=== PATIENT | female | born 1950 | race Caucasian/White ===

== ENCOUNTER 2017-07-18 08:26 | Day surgery (SDC) | payer MEDICARE, BC ==
[~2017-07-18 08:26] MED LIST: ASPIRIN EC81 M1 PO; FOLATE0.4 MG PO; HYDROCHLOROTHIA50 MG PO; LOVASTATIN20 MG PO; TENORMIN100 MG PO
[2017-07-18 09:29] LABS: HEMATOCRIT 43.1 % (36.0-48.0); HEMOGLOBIN 14.8 g/dL (12-16); MCH 31.4 pg (26.0-34.0); MCHC 34.3 g/dL (31.0-37.0); MCV 91.5 fL (80.0-100.0); MEAN PLATELET VOLUME 9.8 fL (7.4-10.4); RBC 4.71 10x6/uL (4.00-5.40); RDW 12.3 % (11.5-14.5); WBC 6.6 10x3/uL (4.8-10.8)
[2017-07-18 09:34] LABS: ANION GAP 10.8 mmol/L (8-16); CALCIUM 9.5 mg/dL (8.5-10.1); CARBON DIOXIDE 30.2 mmol/L (21.0-32.0); CREATININE - SERUM 1.1 mg/dL (0.6-1.3)
[2017-07-18 09:51] VITALS: BP 135/68; BMI 28.3
--- NOTE | 2017-07-18 15:09 | NUR ---
1430--IV DC'D, PT UP TO DRESS AT THIS TIME. JESSE LOZADA 1445--DISCHARGE INSTRUCTIONS GIVEN, PT VERBALIZES UNDERSTANDING. PT OFF UNIT VIA WC. JESSE LOZADA
--- NOTE | 2017-08-01 13:09 | OP ---
PATIENT NAME: DOUGLAS GONZALES MEDICAL RECORD: [id number] :50 LOCATION:[facility] ADMISSION DATE: SURGEON: ARNAV LUND DPM DATE OF OPERATION: 07/18/2017 PREOPERATIVE DIAGNOSES: 1. Hammertoe deformity, left second and fourth digit. 2. 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 POSTOPERATIVE DIAGNOSES: 1. Hammertoe deformity, left second and fourth digit. 2. 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 PROCEDURE: 1. PIPJ fusion, left second and fourth digits. 2. Extensor digitorum longus lengthening, left dorsal fifth PIPJ with skin Z-plasty. ANESTHESIA: Local with IV sedation utilizing lidocaine and Marcaine plain, approximately 15 cc total on the dorsal left foot as well as around the second and fourth digits. HEMOSTASIS: Left thigh tourniquet at 350 mmHg. PREOPERATIVE DETAILS: The patient was taken to the OR and placed in the operating table in a supine position. This was followed by induction of general anesthesia and infiltration of local anesthetic. The left extremity was then prepped and draped in the usual aseptic technique followed by exsanguination and inflation of tourniquet. PROCEDURE #1: PIPJ fusion, left second digit: Two transverse elliptical incisions were made over dorsal aspect of the PIPJ. The skin wedge was removed exposing the extensor longus tendon, which was transected. The head of the proximal phalanx and base of the middle phalanx were then delivered. A sagittal saw was used to resect both. A small drill hole was made in the proximal phalanx and the middle phalanx culminating the bone graft. The hammer graft was then placed in the proximal phalanx and the capital fragment was placed on top of the hammer graft and the fusion joint was compressed. Excellent alignment as well as coaptation was noted. The wound was flushed. The extensor longus was repaired with 4-0 Vicryl and the skin was closed with 4-0 nylon in a simple interrupted technique. PROCEDURE #2: PIPJ fusion, left fourth digit: Procedure was performed as described in #1 without variation and no complication. PROCEDURE #3: Extensor digitorum longus lengthening, left dorsal fifth MPJ with Z-plasty: A 15-blade was used to create a Z shaped incision with the longitudinal aspect of the Z-plasty along the line of contracture about 60-degree angles on the skin flaps. Careful dissection was used to preserve the vascular flow to the flaps. Once the flaps were opened, the extensor longus tendon was visualized, Z lengthening of the tendon was performed allowing plantarflexion of the fifth MPJ to reduce the dorsal contracture. Once this was performed, the pedicle flaps were placed in the appropriate places allowing elongation of the skin and sutured with 4-0 nylon in a simple interrupted technique. Adaptic, 4 x 4 and Conform were used to dress all wounds followed by OPERATIVE REPORT [id number] DOUGLAS GONZALES. Tourniquet was deflated. POSTOPERATIVE DETAILS: The patient tolerated the procedure well and left the OR with vital signs stable and vascular status at preop levels. The patient was transported to recovery per anesthesia in stable condition. TRANSINT:[id number] Voice Confirmation ID: [id number] DOCUMENT ID: [id number] ARNAV LUND DPM at 1309 CC: [id number] DICTATION DATE: 07/18/17 1249 CLAM SHUCKER: 07/18/17 1326 [facility] 07/18/17 [facility] [address] [place] [address]
== END 2017-07-18 14:45 | disposition home or self-care (01) ==
LOC: D.OPS 08:26 → D.PAN 09:50 → D.OPS 09:50 → D.PAN 10:30 → D.OPS 14:45
PROVIDERS: Anesthesiology
DX: M20.42 Other hammer toe(s) (acquired), left foot (principal); M20.092 Other deformity of left finger(s); Z01.812 Encounter for preprocedural laboratory examination